=== PATIENT | female | born 1970 | race African-American/Black ===

== ENCOUNTER 2019-03-17 16:11 | Emergency (ER) | payer BC ==
[~2019-03-17] VITALS: Ht 165.1 cm; Wt 101.2 kg
--- OUTSIDE RECORDS SUMMARY | 2019-03-17 16:14 | XMS REPORT ---
Author [facility] Address Unknown Phone Unavailable Care Team Providers Care Tuyere Fitter Name Role Phone Unavailable Unavailable Payers Payer Name Policy Type Policy Number Effective Date Expiration Date Problems This patient has no known problems. Allergies, Adverse Reactions, Alerts Allergy Name Allergy Type Status Severity Reaction(s) Onset Date Inactive Date Treating Clinician Comments propoxyphene DA Active [place] 2015-01-18 00:00:00 acetaminophen DA Active [place] 2015-01-18 00:00:00 Medications This patient has no known medications. Encounters Start Date/Time End Date/Time Encounter Type Admission Type Attending [facility] Care Department Encounter ID 2018-08-14 00:00:00 2018-08-14 00:00:00 Outpatient [facility] [id number] 2018-08-14 00:00:00 2018-08-14 00:00:00 Outpatient [facility] [id number] 2018-06-04 00:00:00 2018-06-04 00:00:00 Outpatient [facility] [id number] 2018-05-14 00:00:00 2018-05-14 00:00:00 Outpatient [facility] [id number] 2018-04-22 00:00:00 2018-04-22 00:00:00 Outpatient [facility] [id number] 2018-02-04 00:00:00 2018-02-04 00:00:00 Outpatient [facility] [id number] 2017-08-07 13:15:17 2017-08-07 13:15:17 Outpatient [facility] [id number] 2017-08-01 00:00:00 2017-08-01 00:00:00 Outpatient [facility] [id number] 2017-07-28 00:00:00 2017-07-28 00:00:00 Outpatient [facility] [id number] 2017-07-10 11:15:06 2017-07-10 11:15:06 Outpatient [facility] [id number] 2017-06-27 00:00:00 2017-06-27 00:00:00 Outpatient [facility] [id number] 2017-06-25 15:48:49 2017-06-25 15:48:49 Outpatient [facility] [id number] 2017 00:00:00 2017 00:00:00 Outpatient [facility] [id number] 00:00:00 2017 00:00:00 Outpatient [facility] [id number] 2017-05-15 15:06:12 2017-05-15 15:06:12 Outpatient [facility] [id number] 2017-05-15 09:34:29 2017-05-15 09:34:29 Outpatient [facility] [id number] 2017-05-12 09:41:00 2017-05-12 09:41:00 Outpatient [facility] [id number] 2017-05-02 09:14:35 2017-05-02 09:14:35 Outpatient [facility] [id number] 2017-04-25 11:14:13 2017-04-25 11:14:13 Outpatient [facility] [id number] 2017-04-25 00:00:00 2017-04-25 00:00:00 Outpatient [facility] [id number] 2017-04-18 13:42:32 2017-04-18 13:42:32 Outpatient [facility] [id number] 2017-04-03 00:00:00 2017-04-03 00:00:00 Outpatient [facility] [id number] 2017-04-02 13:55:49 2017-04-02 13:55:49 Outpatient [facility] [id number] 2017-03-26 14:11:29 2017-03-26 14:11:29 Outpatient [facility] [id number] 2017-03-25 12:17:12 2017-03-25 12:17:12 Outpatient [facility] [id number] 2017-03-16 12:33:15 2017-03-16 12:33:15 Outpatient [facility] [id number] 2017-02-20 09:36:56 2017-02-20 09:36:56 Outpatient [facility] [id number] 2016-10-07 06:15:00 2016-10-07 06:15:00 Outpatient [facility] [id number] Results Test Description Test Time Test Comments Text Results Atomic Results Result Comments SCR MAMM BILATERAL CAD DIGITAL 2018-09-23 14:54:48 - SCR MAMM BILATERAL CAD DIGITALBILATERAL DIGITAL SCREENING MAMMOGRAM WITH CAD: 09/23/2018CLINICAL: Asymptomatic. Current mammographic images were evaluated by either a [place] M- Vu or a [employer] ImageChecker CAD (computer aided detection system). Comparison is made to exams dated 04/18/2017 mammogram, 04/12/2016 mammogram, and 02/09/2015 mammogram - [facility]. The tissue of both breasts is heterogeneously dense. This may lower the sensitivity of mammography. No suspicious mass, architectural distortion, malignant type calcification, or lymph node abnormality detected. Breast architecture is stable compared to prior exams.IMPRESSION: NEGATIVEThere is no mammographic evidence of malignancy. Resume annual screening mammography in one year. Soha suazo/penrad:09/23/2018 14:54:48 Edge Blacker: Christina BANKS, [facility]-FWletter sent: BIRADS 1-2 Normal Mammogram BI-RADS: 1 Negative
--- OUTSIDE RECORDS SUMMARY | 2019-03-17 16:14 | XMS REPORT | Clinical Summary ---
Author Author [facility] Organization [facility] Address Unknown Phone Unavailable Care Team Providers Care Tax Investigator Name Role Phone Asked, No Pcp PCP Unavailable Allergies Not on File Medications Not on file Active Problems Not on file Social History Date Tobacco Use Types Packs/Day Years Used Never Assessed Sex Assigned at Date Recorded Not on file Industry Job Start Date Occupation Not on file Not on file Not on file Travel End Travel History Travel Start No recent travel history available. Last Filed Vital Signs Not on file Plan of Treatment Not on file Results Not on fileafter 03/16/2018 Advance Directives Patient has advance care planning documents on file. For more information, mansoor tyler contact: Brendan Villanueva [address] [place] [address]
--- NOTE | 2019-03-17 16:51 | NUR ---
PATIENT TO ROOM 4. AMBULATED WITHOUT DIFFICULTY
[2019-03-17 17:39] LABS: BASOPHILS # (AUTO) 0.1 (0.0-0.1); BASOPHILS % 0.4 % (0.0-1.0); EOSINOPHILS # (AUTO) 0.2 (0.0-0.4); EOSINOPHILS % 1.3 % (0.0-6.0); HEMOGLOBIN 11.9 g/dL (12.0-16.0); LYMPHOCYTES # (AUTO) 3.7 (1.0-3.2); MEAN CORPUSCULAR HEMOGLOBIN 30.5 pg (28-32); MEAN CORPUSCULAR HGB CONC 33.1 g/dL (31-35); MEAN CORPUSCULAR VOLUME 92.3 fL (81-99); MONOCYTES # (AUTO) 0.8 (0.2-0.8); MONOCYTES % 7.4 % (4.4-11.3); NEUTROPHILS # (AUTO) 6.4 (2.1-6.9); NEUTROPHILS % 57.3 % (38.7-80.0); PLATELET COUNT 461 x10e3/uL (140-360); RED CELL DISTRIBUTION WIDTH 15.6 % (11.7-14.4)
[2019-03-17 17:57] LABS: ALANINE AMINOTRANSFERASE 18 IU/L (0-55); ALBUMIN/GLOBULIN RATIO 1.2 (0.8-2.0); ALKALINE PHOSPHATASE 71 IU/L (40-150); ANION GAP 12.7 mmol/L (8-16); BLOOD UREA NITROGEN 12 mg/dL (7-26); BUN/CREATININE RATIO 14 (6-25); CALCIUM 9.4 mg/dL (8.4-10.2); CARBON DIOXIDE 22 mmol/L (22-29); CHLORIDE 106 mmol/L (98-107); CREATININE, SERUM 0.85 mg/dL (0.57-1.11); EST GLOMERULAR FILTRATION RATE > 60 ML/MIN (60-); GLUCOSE 93 mg/dL (74-118); POTASSIUM 3.7 mmol/L (3.5-5.1); SODIUM 137 mmol/L (136-145)
[2019-03-17] MEDS ORDERED: DIAZEPAM 5 MG TAB PO ONE (18:00)
[2019-03-17 18:04] LABS: BILIRUBIN,URINE NEGATIVE (NEGATIVE); CLARITY,URINE SL CLOUDY (CLEAR); COLOR,URINE YELLOW (YELLOW); KETONES,URINE NEGATIVE (NEGATIVE); LEUKOCYTE ESTERASE ,URINE NEGATIVE (NEGATIVE); NITRITE,URINE NEGATIVE (NEGATIVE); PROTEIN,URINE DIPSTICK NEGATIVE (NEGATIVE); URINE UROBILINOGEN 0.2 mg/dL (0.2 - 1)
[2019-03-17 18:06] LABS: PREGNANCY TEST, URINE NEGATIVE (NEGATIVE)
[2019-03-17 18:07] LABS: AMPHETAMINES SCREEN,URINE NEGATIVE (NEGATIVE); BENZODIAZEPINES SCREEN,URINE NEGATIVE (NEGATIVE); PHENCYCLIDINE SCREEN,URINE NEGATIVE (NEGATIVE)
[2019-03-17 18:09] LABS: ERYTHROCYTE SEDIMENTATION RATE 12 mm/hr (0-20)
[2019-03-17 18:10] LABS: INR 0.9; PROTHROMBIN TIME 12.6 seconds (11.9-14.5)
[2019-03-17 18:11] LABS: PARTIAL THROMBOPLASTIN TIME 33.7 seconds (23.8-35.5)
[2019-03-17 18:16] LABS: BACTERIA,URINE MODERATE /HPF; EPITHELIAL CELLS,URINE MODERATE /LPF
--- NOTE | 2019-03-17 18:28 | Diagnostic Imaging Report ---
Complete set of images made available for interpretation on 03/17/2019 at 6:20 PM. EXAMINATION: Head CT HISTORY: Right-sided headache COMPARISON: None. TECHNIQUE: Multidetector axial images were obtained without contrast from the foramen magnum to the vertex . The images were reconstructed using brain and bone algorithms. Thin section brain images were reformatted into coronal and sagittal planes. Image quality: Motion/streaking artifact limits the evaluation of the skull base and posterior cranial fossa. Dose modulation, iterative reconstruction, and/or weight based adjustment of the mA/kV was utilized to reduce the radiation dose to as low as reasonably achievable. FINDINGS: Parenchyma: 1. No abnormal densities. 2. No mass or hemorrhage. No CT evidence of acute territorial vascular insult. Extra-axial spaces:No abnormal density. No extra-axial fluid collections Brain volume: Normal for age. Ventricles: No hydrocephalus or displacement. Arteries: No density suggestive of thrombus. Dural sinuses: No abnormal density. Extra-axial spaces: No abnormal density. Foramen magnum: No mass, Chiari malformation, or basilar invagination. Sella: No obvious mass. Paranasal/mastoid sinuses: Imaged portions unremarkable. Skull/Scalp: No lytic or blastic lesions. No fractures. IMPRESSION: Normal head CT. Signed by: Dr. Erika River M.D. on 03/17/2019 6:25 PM
[2019-03-17] MEDS ORDERED: KETOROLAC TROMETHAMINE 60 MG/2 ML VIAL ONE (18:44)
[2019-03-17] MEDS ORDERED: KETOROLAC TROMETHAMINE 60 MG/2 ML VIAL IM ONE (18:45)
== END 2019-03-17 19:06 | disposition home or self-care (01) ==
LOC: ER 16:11
DX: G44.211 Episodic tension-type headache, intractable (principal); I10 Essential (primary) hypertension; J44.9 Chronic obstructive pulmonary disease, unspecified; Z87.891 Personal history of nicotine dependence
CPT/HCPCS: 36415; 70450; 80053; 80307; 81001; 81025; 85025; 85610; 85651; 85730; 99284; J1885

== ENCOUNTER 2021-01-22 08:11 | Emergency (ER) | payer SELFPAY ==
[~2021-01-22] VITALS: Ht 165.1 cm; Wt 102.1 kg
[2021-01-22] MEDS ORDERED: KETOROLAC TROMETHAMINE 30 MG/ML VIAL IV STA (08:38)
[2021-01-22] MEDS ORDERED: SODIUM CHLORIDE 0.9% 1000ML 1,000 ML IV STA (08:38)
[2021-01-22] MEDS ORDERED: METOCLOPRAMIDE HCL 10 MG/2ML VIAL IV ONE (08:45)
[2021-01-22] MEDS ORDERED: DIPHENHYDRAMINE HCL INJ 50 MG/ML VIAL IV ONE (08:45)
[2021-01-22 08:55] LABS: BASOPHILS % 0.4 % (0.0-1.0); EOSINOPHILS # (AUTO) 0.1 (0.0-0.4); EOSINOPHILS % 1.4 % (0.0-6.0); HEMATOCRIT 40.3 % (34.2-44.1); HEMOGLOBIN 12.8 g/dL (12.0-16.0); LYMPHOCYTES # (AUTO) 2.9 (1.0-3.2); LYMPHOCYTES % 28.9 % (18.0-39.1); MEAN CORPUSCULAR HEMOGLOBIN 29.5 pg (28-32); MEAN CORPUSCULAR HGB CONC 31.8 g/dL (31-35); MEAN CORPUSCULAR VOLUME 92.9 fL (81-99); MONOCYTES # (AUTO) 0.9 (0.2-0.8); MONOCYTES % 8.5 % (4.4-11.3); NEUTROPHILS # (AUTO) 6.1 (2.1-6.9); NEUTROPHILS % 60.2 % (38.7-80.0); PLATELET COUNT 446 x10e3/uL (140-360); RED BLOOD COUNT 4.34 x10e6/uL (3.6-5.1)
[2021-01-22 09:19] LABS: ALANINE AMINOTRANSFERASE 24 IU/L (0-55); ALBUMIN 4.1 g/dL (3.5-5.0); ALBUMIN/GLOBULIN RATIO 1.2 (0.8-2.0); ALKALINE PHOSPHATASE 73 IU/L (40-150); ANION GAP 14.7 mmol/L (8-16); BLOOD UREA NITROGEN 16 mg/dL (7-26); BUN/CREATININE RATIO 19 (6-25); CALCIUM 8.9 mg/dL (8.4-10.2); CARBON DIOXIDE 22 mmol/L (22-29); CHLORIDE 104 mmol/L (98-107); CREATININE, SERUM 0.83 mg/dL (0.57-1.11); EST GLOMERULAR FILTRATION RATE > 60 ML/MIN (60-); GLUCOSE 114 mg/dL (74-118); POTASSIUM 3.7 mmol/L (3.5-5.1); SODIUM 137 mmol/L (136-145)
[2021-01-22 10:24] LABS: ERYTHROCYTE SEDIMENTATION RATE 16 mm/hr (0-20)
[2021-01-22 14:58] VITALS: BP 123/51
== END 2021-01-22 14:59 | disposition home or self-care (01) ==
LOC: ER 08:40
DX: G43.909 Migraine, unspecified, not intractable, without status migrainosus (principal); I10 Essential (primary) hypertension; J44.9 Chronic obstructive pulmonary disease, unspecified; K21.9 Gastro-esophageal reflux disease without esophagitis
CPT/HCPCS: 36415; 70450; 80053; 83735; 85025; 85651; 99284; J1200; J1885; J2765; J7030

== ENCOUNTER 2024-05-19 11:15 | Observation (INO) | payer BC, OTHER ==
[2024-05-18 21:00] VITALS: BP 143/84; PULSE 63; RESP 20; TEMP 97.8; O2SAT 99
[~2024-05-19] VITALS: Ht 165.1 cm; Wt 90.7 kg
[2024-05-19] VITALS (7 sets, daily range): BP systolic 143–162; BP diastolic 84–95; PULSE 63–75; RESP 15–20; TEMP 97.5–97.8; O2SAT 99–100
[2024-05-19] MEDS ORDERED: ASPIRIN81 MG PO (11:25)
[2024-05-19 11:34] LABS: BASOPHILS % 0.4 % (0.0-1.0); EOSINOPHILS # (AUTO) 0.1 (0.0-0.4); EOSINOPHILS % 1.3 % (0.0-6.0); HEMATOCRIT 37.4 % (34.2-44.1); HEMOGLOBIN 11.8 g/dL (12.0-16.0); LYMPHOCYTES # (AUTO) 3.3 (1.0-3.2); LYMPHOCYTES % 35.3 % (18.0-39.1); MEAN CORPUSCULAR HEMOGLOBIN 29.7 pg (28-32); MEAN CORPUSCULAR HGB CONC 31.6 g/dL (31-35); MEAN CORPUSCULAR VOLUME 94.2 fL (81-99); MONOCYTES # (AUTO) 0.8 (0.2-0.8); MONOCYTES % 7.9 % (4.4-11.3); NEUTROPHILS # (AUTO) 5.2 (2.1-6.9); NEUTROPHILS % 54.6 % (38.7-80.0); PLATELET COUNT 432 x10e3/uL (140-360); RED BLOOD COUNT 3.97 x10e6/uL (3.6-5.1); RED CELL DISTRIBUTION WIDTH 15.4 % (11.7-14.4); WHITE BLOOD COUNT 9.44 x10e3/uL (4.8-10.8)
[2024-05-19 11:48] LABS: INR 0.91; PROTHROMBIN TIME 12.7 seconds (11.9-14.5)
[2024-05-19 11:56] LABS: ALBUMIN 4.3 g/dL (3.5-5.0); ALBUMIN/GLOBULIN RATIO 1.3 (0.8-2.0); ANION GAP 13.9 mmol/L (8-16); BILIRUBIN,TOTAL 0.4 mg/dL (0.2-1.2); CALCIUM 9.4 mg/dL (8.4-10.2); CREATININE, SERUM 0.71 mg/dL (0.57-1.11); MAGNESIUM 1.9 MG/DL (1.3-2.1); POTASSIUM 3.9 mmol/L (3.5-5.1); TOTAL PROTEIN 7.7 g/dL (6.5-8.1)
[2024-05-19] MEDS: SODIUM CHLORIDE 0.9% 500ML 500 ML IV ONE (11:59)
[2024-05-19 12:01] LABS: TROPONIN I 0.001 ng/mL (0-0.300)
[2024-05-19] MEDS: KETOROLAC TROMETHAMINE 30 MG/ML VIAL IV STA (12:02)
[2024-05-19] MEDS: HYDRALAZINE HCL 20 MG/ML VIAL IV STA (12:03)
[2024-05-19] MEDS: ACETAMINOPHEN 325 MG TAB PO ONE (13:03)
[2024-05-19] MEDS: ENALAPRILAT IV INJ 1.25 MG/ML VIAL IV STA (13:03)
[2024-05-19] MEDS: LABETALOL HCL 5 MG/ML 20ML VIAL IV STA (13:36)
[2024-05-19] MEDS ORDERED: Morphine 2mg Syringe 2 MG/ML SYR IV PRN (13:45)
[2024-05-19] MEDS ORDERED: GABAPENTIN100 MG PO (14:58)
[2024-05-19] MEDS ORDERED: OMEPRAZOLE40 MG PO (14:58)
[2024-05-19] MEDS ORDERED: METOLAZONE2.5 MG PO (14:58)
[2024-05-19] MEDS ORDERED: SIMVASTATIN20 MG PO (14:58)
[2024-05-19] MEDS ORDERED: TENORMIN50 MG PO (14:58)
[2024-05-19] MEDS ORDERED: SPIRONOLACTONE25 MG PO (14:58)
[2024-05-19] MEDS: ONDANSETRON HCL INJ 2MG/ML 2ML 2 MG/ML VIAL IV PRN (15:51)
[2024-05-19] MEDS: ACETAMIN/BUTALBITAL/CAFFEINE TAB PO PRN (15:51)
[2024-05-19] MEDS: KETOROLAC TROMETHAMINE 30 MG/ML VIAL IV PRN (17:00)
[2024-05-19] MEDS: METOPROLOL TARTRATE 50 MG TAB PO SCH (17:04)
[2024-05-19] MEDS: PROMETHAZINE HCL (IM) 25 MG/ML VIAL IM PRN (18:14)
[2024-05-19] MEDS: PANTOPRAZOLE SOD 40 MG TABEC PO SCH (20:00)
[2024-05-19] MEDS ORDERED: SIMVASTATIN 20 MG TAB PO SCH (21:00)
[2024-05-19] MEDS: HEPARIN SOD (PORCINE) 5,000 UNIT/ML VIAL SC SCH (21:35)
[2024-05-19] MEDS: GABAPENTIN 100 MG CAP PO SCH (21:35)
[2024-05-19] MEDS: ATORVASTATIN 20 MG TAB PO SCH (21:35)
[2024-05-20] VITALS (8 sets, daily range): BP systolic 116–170; BP diastolic 66–108; PULSE 61–96; RESP 18–19; TEMP 97.7–98.3; O2SAT 97–100
[2024-05-20 05:54] LABS: BASOPHILS % 0.4 % (0.0-1.0); EOSINOPHILS # (AUTO) 0.1 (0.0-0.4); EOSINOPHILS % 1.6 % (0.0-6.0); HEMOGLOBIN 10.4 g/dL (12.0-16.0); LYMPHOCYTES # (AUTO) 3.2 (1.0-3.2); LYMPHOCYTES % 40.8 % (18.0-39.1); MEAN CORPUSCULAR HEMOGLOBIN 29.5 pg (28-32); MEAN CORPUSCULAR HGB CONC 30.6 g/dL (31-35); MEAN CORPUSCULAR VOLUME 96.6 fL (81-99); MONOCYTES # (AUTO) 0.6 (0.2-0.8); MONOCYTES % 7.8 % (4.4-11.3); NEUTROPHILS # (AUTO) 3.8 (2.1-6.9); PLATELET COUNT 408 x10e3/uL (140-360); RED BLOOD COUNT 3.52 x10e6/uL (3.6-5.1); RED CELL DISTRIBUTION WIDTH 15.9 % (11.7-14.4); WHITE BLOOD COUNT 7.72 x10e3/uL (4.8-10.8)
[2024-05-20 06:23] LABS: ALBUMIN 3.4 g/dL (3.5-5.0); ALBUMIN/GLOBULIN RATIO 1.1 (0.8-2.0); ANION GAP 13.3 mmol/L (8-16); BILIRUBIN,TOTAL 0.1 mg/dL (0.2-1.2); CALCIUM 8.6 mg/dL (8.4-10.2); CHOL/HDL RATIO 3.7 (3.0-3.6); CREATININE, SERUM 0.72 mg/dL (0.57-1.11); POTASSIUM 3.3 mmol/L (3.5-5.1); TOTAL PROTEIN 6.5 g/dL (6.5-8.1)
[2024-05-20 06:40] LABS: TROPONIN I 0.01 ng/mL (0-0.300)
[2024-05-20] MEDS: HYDRALAZINE HCL 20 MG/ML VIAL IV PRN (07:35)
[2024-05-20] MEDS: CARVEDILOL 12.5 MG TAB PO SCH (09:00)
[2024-05-20] MEDS: ASPIRIN 81 MG ENTERIC COATED PO SCH (09:05)
[2024-05-20] MEDS: LOSARTAN POTASSIUM 100 MG TAB PO SCH (09:05)
[2024-05-20] MEDS: SPIRONOLACTONE 25 MG TAB PO SCH (09:05)
[2024-05-20] MEDS: HYDROCHLOROTHIAZIDE 25 MG TAB PO SCH (09:05)
[2024-05-20] MEDS: LORAZEPAM 1 MG TAB PO ONE (10:04)
[2024-05-20 15:01] LABS: TROPONIN I 0.008 ng/mL (0-0.300)
[2024-05-20] MEDS ORDERED: REGADENOSON 0.4 MG/5 ML SYR IV ONE (15:07)
[2024-05-20] MEDS ORDERED: ESIDRIX25 MG PO (16:50)
[2024-05-20] MEDS ORDERED: COREG12.5 MG PO (16:50)
[2024-05-20] MEDS ORDERED: COZAAR100 MG PO (16:50)
[2024-05-20] MEDS: CLONIDINE HCL 0.1 MG TAB PO ONE (18:47)
[2024-05-20] MEDS ORDERED: ONDANSETRON HCL 4 MG ORAL DISINTEGRATING TAB PO PRN (19:30)
== END 2024-05-20 20:29 | disposition home or self-care (01) ==
LOC: ER 11:20 → ERHOLD 13:49 → MED/SURG3 14:26
PROVIDERS: ADMIT Internal Medicine; ATTEND Internal Medicine
DX: I16.0 Hypertensive urgency (principal); I10 Essential (primary) hypertension; R07.9 Chest pain, unspecified; M25.512 Pain in left shoulder; R60.0 Localized edema; J44.9 Chronic obstructive pulmonary disease, unspecified; I25.10 Atherosclerotic heart disease of native coronary artery without angina pectoris; E66.9 Obesity, unspecified; Z68.33 Body mass index [BMI] 33.0-33.9, adult; K21.9 Gastro-esophageal reflux disease without esophagitis; G43.909 Migraine, unspecified, not intractable, without status migrainosus; M19.91 Primary osteoarthritis, unspecified site; Z86.79 Personal history of other diseases of the circulatory system; Z79.899 Other long term (current) drug therapy; Z79.82 Long term (current) use of aspirin
CPT/HCPCS: 36415 ×2; 70450; 71045; 73030; 78452; 80053 ×2; 80061; 82550 ×2; 83735; 84484 ×2; 85025 ×2; 85610; 85730; 93005; 93017; 93306; 99252; 99284; A9502; G0378 ×2; J0360 ×2; J1644 ×2; J1885 ×2; J2405; J2470; J2550 ×2; J2785; J3490; J7040; S0164